=== PATIENT | male | born 1945 | race Caucasian/White ===

== ENCOUNTER 2018-12-21 11:37 | Inpatient (IN) ==
[2018-12-21] MEDS: 0.9 % Sodium Chloride 1,000 ML IVC SCH ×2 (12:26→21:24)
[2018-12-21 12:33] LABS: Bilirubin,Urine Negative (Negative); Blood,Urine Negative (Negative); Clarity,Urine Clear (Clear); Color,Urine Yellow (Yellow); Glucose,Urine (UA) Normal (Normal); Ketones,Urine Negative (Negative); Leukocyte Esterase,Urine Negative (Negative); Nitrite,Urine Negative (Negative); PH,Urine 7.5 pH Units (5.0-8.0); Protein,Urine Negative (Neg-Trace); Specific Gravity,Urine 1.012 (1.010-1.025)
[2018-12-21 12:38] LABS: Hematocrit 20.4 % (37.5-50.1); Hemoglobin 6.8 g/dL (12.9-16.9); Immature Platelets 5.8 % (1.1-6.1); Mean Corpuscular HGB Conc 33.3 g/dL (31.6-35.5); Mean Corpuscular Hemoglobin 31.2 pg (28.0-33.3); Mean Corpuscular Volume 93.6 fL (83.0-100.0); Nucleated Red Blood Cells 1.1 /100 WBC (0); Red Blood Count 2.18 M/mcL (4.19-5.50); Red Cell Distribution Width 14.9 % (11.5-14.5); White Blood Count 4.5 K/mcL (4.3-11.1)
[2018-12-21 12:42] LABS: Platelet Count 19 K/mcL (140-400)
[2018-12-21 12:45] LABS: INR 1.1; Prothrombin Time 12.3 Seconds (9.4-12.1)
[2018-12-21 12:47] LABS: Activated Partial Thrombo Time 30.8 Seconds (26.0-36.0)
[2018-12-21 12:52] LABS: Alanine Aminotransferase 14 Units/L (7-52); Albumin 3.9 g/dL (3.5-5.7); Albumin/Globulin Ratio 1.6 (1.1-2.2); Alkaline Phosphatase 74 Units/L (34-104); Aspartate Amino Transferase 18 Units/L (13-39); BUN/Creatinine Ratio 21 (6-26); Bilirubin,Direct 0.1 mg/dL (0.0-0.2); Bilirubin,Indirect 0.5 mg/dL (0.0-1.2); Bilirubin,Total 0.6 mg/dL (0.3-1.0); Blood Urea Nitrogen 16 mg/dL (8-23); Calcium 9.4 mg/dL (8.6-10.3); Carbon Dioxide 29 mEq/L (23-29); Chloride 99 mEq/L (98-107); Creatine Kinase 52 Units/L (30-223); Globulin 2.4 g/dL (2.4-3.5); Glucose 149 mg/dL (70-105); Magnesium 1.8 mg/dL (1.6-2.6); Osmolality,Calculated 288 (280-300); Phosphorous 3.7 mg/dL (2.7-4.5); Potassium 4.2 mEq/L (3.5-5.1); Sodium 137 mEq/L (136-145); Total Protein 6.3 g/dL (6.4-8.9); Troponin I < 0.03 ng/mL (< 0.04); Uric Acid 5.7 mg/dL (2.3-7.6); eGFR For African Americans > 60 (> 60); eGFR For Non-African Americans > 60 (> 60)
[2018-12-21 13:12] LABS: Lymphocytes # 0.3 K/mcL (0.6-4.6); Monocytes # 0.3 K/mcL (0.0-1.3)
[2018-12-21 13:14] LABS: Platelet Estimate Marked Decrease (Normal)
[2018-12-21 13:16] LABS: Anisocytosis 1+ (Not Present)
[2018-12-21 13:18] LABS: Hypochromasia Present (Not Present)
[2018-12-21] MEDS ORDERED: Isovue-370 500 ML BOTTLE IVP ONE (13:39)
--- NOTE | 2018-12-21 13:43 | Emergency Department Note ---
Disposition Clinical Impression: Small cell lung cancer, Anemia, Thrombocytopenia, Pneumonia, Syncope Disposition: Admitted As Inpatient Condition: Fair [facility] Care Provider[facility] - Forms: ED Satisfaction Letter Time of Disposition: 15:38 General Adult HPI - General Chief complaint: ED Shortness of Breath/Dyspnea Stated complaint: SLIME Time Seen by Provider: 12/21/18 11:44 Source: patient Mode of arrival: ambulatory Limitations: no limitations Nursing Notes Reviewed: Yes Vital Signs Reviewed: Yes - History of Present Illness HPI Narrative: Patient presents emergency room in the care of the family for evaluation of a syncopal event yesterday as well as shortness of breath and generalized weakness. Patient is currently in the care of oncology for small cell lung cancer. They felt that his hemoglobin was low and requested that he come to the emergency room for further evaluation. Patient has denied any fevers or chills or other medical conditions here recently. Onset (ago): day(s) Radiation: non-radiation Pain Severity: mild Pain Scale: 7 Quality: aching Consistency: constant Improves with: nothing Worsens with: movement Associated symptoms: Reports: cough, loss of appetite, malaise, nausea/vomiting - Related Data Home Medications Medication Instructions Recorded Confirmed Atenolol [Tenormin] 50 mg PO DAILY 10/18/18 12/21/18 Atorvastatin [Lipitor] 10 mg PO HS 10/18/18 12/21/18 Theophylline Anhydrous 400 mg PO DAILY 10/18/18 12/21/18 [Theophylline] Cholecalciferol (D-3) [Vitamin D] 1,000 unit PO DAILY 12/05/18 12/21/18 Cyanocobalamin (Vitamin B-12) 1,000 mcg PO DAILY 12/05/18 12/21/18 [Vitamin B12] Ferrous Sulfate 325 mg PO DAILY 12/05/18 12/21/18 Multivitamin [Multivitamins] 1 each PO DAILY 12/05/18 12/21/18 Oxycodone HCl/Acetaminophen 1 each PO Q8H PRN 12/05/18 12/21/18 [Percocet 5-325 mg Tablet] Diflucan 100 mg PO 12/21/18 Levaquin 500 mg PO 12/21/18 PredniSONE 10 mg PO 12/21/18 Previous Rx's Medication Instructions Recorded Lidocaine/Prilocaine [Emla] 1 appl TP DAILY #30 gm 10/18/18 Ondansetron HCl [Zofran] 4 mg PO Q6HR PRN #30 tablet 11/21/18 Allergies Allergy/AdvReac Type Severity Reaction Status Date / Time adhesive tape Allergy Rash Verified 12/05/18 09:45 Erythromycin Base Allergy Rash Verified 12/05/18 09:45 [From Erythrocin] latex Allergy Rash Verified 12/05/18 09:45 All systems ED: reviewed and negative except as stated. Review of Systems: As Per HPI Constitutional: Reports: weakness. Denies: fever, chills ENT ED: Reports: congestion. Denies: hearing loss, dysphagia Cardiovascular: Reports: orthopnea, syncope. Denies: chest pain, palpitations, dyspnea on exertion, edema Respiratory: Reports: cough. Denies: dyspnea, wheezes Gastrointestinal: Reports: nausea. Denies: abdominal pain, vomiting, diarrhea Genitourinary: Denies: urgency, dysuria Musculoskeletal: Denies: back pain, neck pain Integumentary: Denies: rash Neurological: Denies: headache Endocrine: Reports: fatigue Past Medical History - Past Medical History Attestation: Yes The following information was validated with the patient. Source: patient Medical history: Reports: arthritis, asthma, cancer, COPD, hyperlipidemia, hypertension, malignancy, other Psychiatric history: Reports: no psych history - Social History Smoking Status: Former smoker Smokeless Tobacco Status: No Alcohol use: Reports: recent Drug use: Reports: none Physical Exam - General Limitations: no limitations General appearance: alert, in no apparent distress - Head Head exam: atraumatic, normocephalic, normal inspection - Eye Eye exam: Present: normal appearance, PERRL, EOMI, other - ENT ENT exam: normal exam, normal oropharynx, mucous membranes moist - Neck Neck exam: Present: normal inspection, full ROM - Chest Chest inspection: Present: normal inspection, symmetric chest wall rise. Ab sent: tenderness - Respiratory Respiratory exam: Present: accessory muscle use, other. Absent: respiratory distress, wheezes, stridor - Cardiovascular Cardiovascular exam: Present: normal rhythm, tachycardia, normal heart sounds - Abdominal Exam Abdominal exam: Present: soft, Non-Tender, normal bowel sounds. Absent: tenderness, distention, guarding, rebound, rigidity, Dunlap's sign, Rovsing's sign, tenderness at McBurney's Point - Extremities Exam Extremities exam: Present: normal inspection, full ROM, normal capillary refill. Absent: tenderness - Back Exam Back exam: Present: normal inspection - Neurological Exam Neurological exam: Present: alert, oriented X3, CN II-XII intact, normal gait - Skin Skin exam: Present: warm, dry, intact, pallor Course Course Narrative: Patient seen and examined the time of arrival. See history of present illness. 73-year-old male presents emergency room at the request of his oncologist Dr. Tucker. Patient was over there this morning for radiation treatment for non- small cell lung cancer. Cancer is in the right side of his lung base. Patient has had generalized malaise and a syncopal event yesterday. He is also had some blood-streaked mucus on coughing up this at this time. He denies any recent fevers or chills. He has had nausea without any specific vomiting. Denies any other falls trauma or injury. He is not currently not taking any blood thinners. Head is atraumatic. Pupils are equal round reactive. Conjunctiva is pale. Mucous members are moist. No petechial rashes or lesions noted across the skin on initial exam. Lungs are diminished on the right side worse than the left. Heart is regular and tachycardic. Abdomen is soft nontender nondistended with no guarding no rigidity no peritoneal symptoms at this time. Placenta trauma or injury noted. Extremities are otherwise normal on exam. Anterior left-sided chest wall port is accessed at this time with no redness warmth or erythema around it. Patient has no other symptoms or complaints at this point. Sepsis evaluation will be started this time looking for infectious etiology versus anemia is a presenting source to the syncopal event yesterday. Patient has stable blood pressure but was slightly tachycardic. Patient has hemoptysis which is concerning secondary to lung cancer. Clinical suspicion for pulmonary emboli is low considering he is currently in active treatment for lung cancer. Detailed workup will be established with CT imaging of the head chest x-ray EKG CBC chemistry electrolytes lactic acid troponin along with blood typing and screen. Disposition to be determined once full workup and treatment course is completed. Expect the patient will most likely require admission for syncope at the bare minimum. EKG to be reviewed and disposition determined. - Reevaluation(s) Reevaluation #1: Hemoglobin is 6.8. Platelet count is 19. From oncology was contacted and recommended transplant using platelets as well as blood product. CT imaging of the head and CT angiography the chest to be completed this time considering the patient bilateral atelectasis with possible pneumonia. Patient did not have signs of infection initially does not drink any other symptoms but because of th e findings on chest x-ray patient will have blood cultures and antibiotics ordered for what appears to be pneumonia at this time. Definitive management will be established in the inpatient setting. Patient is otherwise stable. Patient will be resuscitated with blood products as opposed to large volume fluid resuscitation at this time. Time: 13:51 Reevaluation #2: Patient was discussed with the hospitalist Dr. Oseguera. Patient is otherwise clinically stable this time. First unit of blood is being transfused. CT of the chest is otherwise unremarkable at this time onset of fibrosis. Antibiotic regimen was discussed. CT the head was negative. Patient is clinically stable this point. No other recommendations or concerns noted at this time. Patient will be monitored here in the emergency department until the admission is completed. Time: 15:37 Vital Signs Temperature 98.0 F 12/21/18 11:38 Pulse Rate 103 12/21/18 11:38 Respiratory Rate 20 12/21/18 11:38 Blood Pressure 127/91 12/21/18 11:38 O2 Sat by Pulse Oximetry 95 12/21/18 11:38 Temperature 98.2 F 12/21/18 15:01 Pulse Rate 99 12/21/18 15:01 Respiratory Rate 16 12/21/18 15:01 Blood Pressure 125/92 12/21/18 15:01 O2 Sat by Pulse Oximetry 98 12/21/18 14:58 Oxygen Delivery Oxygen Delivery Nasal Cannula Medical Decision Making - [facility] Narrative Medical decision making narrative: Pneumonia, anemia, thrombocytopenia, small cell lung cancer - Medical Records Medical records reviewed: Yes I reviewed the patient's medical records. - Lab Data Lab results reviewed: Yes I reviewed the patient's lab results. Result diagrams: 12/21/18 12:14 12/21/18 12:14 Lab Results 12/21/18 12/21/18 12/21/18 Range/Units 12:14 12:14 12:14 WBC 4.5 (4.3-11.1) K/mcL RBC 2.18 L (4.19-5.50) M/mcL Hgb 6.8 L (12.9-16.9) g/dL Hct 20.4 L (37.5-50.1) % MCV 93.6 (83.0-100.0) fL MCH 31.2 (28.0-33.3) pg MCHC 33.3 (31.6-35.5) g/dL RDW 14.9 H (11.5-14.5) % Plt Count 19 L* (140-400) K/mcL MPV 12.0 (9.4-12.4) fL Seg Neutrophils % 72.0 % Band Neutrophils % 16.0 H (0-4) % Lymphocytes % 6.0 % Monocytes % 6.0 % Neutrophils # 4.0 (1.6-8.9) K/mcL Lymphocytes # 0.3 L (0.6-4.6) K/mcL Monocytes # 0.3 (0.0-1.3) K/mcL Nucleated RBCs/100 WBC 1.1 H (0) /100 WBC Platelet Estimate Marked Decrease L (Normal) Immature Plt Fraction 5.8 (1.1-6.1) % Hypochromasia Present A (Not Present) Anisocytosis 1+ A (Not Present) PT 12.3 H (9.4-12.1) Seconds INR 1.1 APTT 30.8 (26.0-36.0) Seconds Sodium 137 (136-145) mEq/L Potassium 4.2 (3.5-5.1) mEq/L Chloride 99 (98-107) mEq/L Carbon Dioxide 29 (23-29) mEq/L BUN 16 (8-23) mg/dL Creatinine 0.78 (0.70-1.30) mg/dL Est GFR ( Amer) > 60 (> 60) Est GFR (Non-Af Amer) > 60 (> 60) BUN/Creatinine Ratio 21 (6-26) Glucose 149 H (70-105) mg/dL Calculated Osmolality 288 (280-300) Lactic Acid (0.5-2.2) mmol/L Uric Acid 5.7 (2.3-7.6) mg/dL Calcium 9.4 (8.6-10.3) mg/dL Phosphorus 3.7 (2.7-4.5) mg/dL Magnesium 1.8 (1.6-2.6) mg/dL Total Bilirubin 0.6 (0.3-1.0) mg/dL Direct Bilirubin 0.1 (0.0-0.2) mg/dL Indirect Bilirubin 0.5 (0.0-1.2) mg/dL AST 18 (13-39) Units/L ALT 14 (7-52) Units/L Alkaline Phosphatase 74 (34-104) Units/L Creatine Kinase 52 (30-223) Units/L Troponin I < 0.03 (< 0.04) ng/mL B-Natriuretic Peptide (Less than 100) pg/mL Serum Total Protein 6.3 L (6.4-8.9) g/dL Albumin 3.9 (3.5-5.7) g/dL Globulin 2.4 (2.4-3.5) g/dL Albumin/Globulin Ratio 1.6 (1.1-2.2) Random Cortisol 9.0 mcg/dl Urine Color (Yellow) Urine Clarity (Clear) Urine pH (5.0-8.0) pH Units Ur Specific [place] (1.010-1.025) Urine Protein (Neg-Trace) mg/dL Urine Glucose (UA) (Normal) mg/dL Urine Ketones (Negative) mg/dL Urine Blood (Negative) Urine Nitrite (Negative) Urine Bilirubin (Negative) Urine Urobilinogen (Normal) mg/dL Ur Leukocyte Esterase (Negative) Ur Culture Indicated? (NO) Blood Type Antibody Screen Crossmatch 12/21/18 12/21/18 12/21/18 Range/Units 12:14 12:14 12:14 WBC (4.3-11.1) K/mcL RBC (4.19-5.50) M/mcL Hgb (12.9-16.9) g/dL Hct (37.5-50.1) % MCV (83.0-100.0) fL MCH (28.0-33.3) pg MCHC (31.6-35.5) g/dL RDW (11.5-14.5) % Plt Count (140-400) K/mcL MPV (9.4-12.4) fL Seg Neutrophils % % Band Neutrophils % (0-4) % Lymphocytes % % Monocytes % % Neutrophils # (1.6-8.9) K/mcL Lymphocytes # (0.6-4.6) K/mcL Monocytes # (0.0-1.3) K/mcL Nucleated RBCs/100 WBC (0) /100 WBC Platelet Estimate (Normal) Immature Plt Fraction (1.1-6.1) % Hypochromasia (Not Present) Anisocytosis (Not Present) PT (9.4-12.1) Seconds INR APTT (26.0-36.0) Seconds Sodium (136-145) mEq/L Potassium (3.5-5.1) mEq/L Chloride (98-107) mEq/L Carbon Dioxide (23-29) mEq/L BUN (8-23) mg/dL Creatinine (0.70-1.30) mg/dL Est GFR ( Amer) (> 60) Est GFR (Non-Af Amer) (> 60) BUN/Creatinine Ratio (6-26) Glucose (70-105) mg/dL Calculated Osmolality (280-300) Lactic Acid 1.3 (0.5-2.2) mmol/L Uric Acid (2.3-7.6) mg/dL Calcium (8.6-10.3) mg/dL Phosphorus (2.7-4.5) mg/dL Magnesium (1.6-2.6) mg/dL Total Bilirubin (0.3-1.0) mg/dL Direct Bilirubin (0.0-0.2) mg/dL Indirect Bilirubin (0.0-1.2) mg/dL AST (13-39) Units/L ALT (7-52) Units/L Alkaline Phosphatase (34-104) Units/L Creatine Kinase (30-223) Units/L Troponin I (< 0.04) ng/mL B-Natriuretic Peptide 124 H (Less than 100) pg/mL Serum Total Protein (6.4-8.9) g/dL Albumin (3.5-5.7) g/dL Globulin (2.4-3.5) g/dL Albumin/Globulin Ratio (1.1-2.2) Random Cortisol mcg/dl Urine Color (Yellow) Urine Clarity (Clear) Urine pH (5.0-8.0) pH Units Ur Specific [place] (1.010-1.025) Urine Protein (Neg-Trace) mg/dL Urine Glucose (UA) (Normal) mg/dL Urine Ketones (Negative) mg/dL Urine Blood (Negative) Urine Nitrite (Negative) Urine Bilirubin (Negative) Urine Urobilinogen (Normal) mg/dL Ur Leukocyte Esterase (Negative) Ur Culture Indicated? (NO) Blood Type O POSITIVE Antibody Screen NEGATIVE Crossmatch See Detail 12/21/18 Range/Units 12:23 WBC (4.3-11.1) K/mcL RBC (4.19-5.50) M/mcL Hgb (12.9-16.9) g/dL Hct (37.5-50.1) % MCV (83.0-100.0) fL MCH (28.0-33.3) pg MCHC (31.6-35.5) g/dL RDW (11.5-14.5) % Plt Count (140-400) K/mcL MPV (9.4-12.4) fL Seg Neutrophils % % Band Neutrophils % (0-4) % Lymphocytes % % Monocytes % % Neutrophils # (1.6-8.9) K/mcL Lymphocytes # (0.6-4.6) K/mcL Monocytes # (0.0-1.3) K/mcL Nucleated RBCs/100 WBC (0) /100 WBC Platelet Estimate (Normal) Immature Plt Fraction (1.1-6.1) % Hypochromasia (Not Present) Anisocytosis (Not Present) PT (9.4-12.1) Seconds INR APTT (26.0-36.0) Seconds Sodium (136-145) mEq/L Potassium (3.5-5.1) mEq/L Chloride (98-107) mEq/L Carbon Dioxide (23-29) mEq/L BUN (8-23) mg/dL Creatinine (0.70-1.30) mg/dL Est GFR ( Amer) (> 60) Est GFR (Non-Af Amer) (> 60) BUN/Creatinine Ratio (6-26) Glucose (70-105) mg/dL Calculated Osmolality (280-300) Lactic Acid (0.5-2.2) mmol/L Uric Acid (2.3-7.6) mg/dL Calcium (8.6-10.3) mg/dL Phosphorus (2.7-4.5) mg/dL Magnesium (1.6-2.6) mg/dL Total Bilirubin (0.3-1.0) mg/dL Direct Bilirubin (0.0-0.2) mg/dL Indirect Bilirubin (0.0-1.2) mg/dL AST (13-39) Units/L ALT (7-52) Units/L Alkaline Phosphatase (34-104) Units/L Creatine Kinase (30-223) Units/L Troponin I (< 0.04) ng/mL B-Natriuretic Peptide (Less than 100) pg/mL Serum Total Protein (6.4-8.9) g/dL Albumin (3.5-5.7) g/dL Globulin (2.4-3.5) g/dL Albumin/Globulin Ratio (1.1-2.2) Random Cortisol mcg/dl Urine Color Yellow (Yellow) Urine Clarity Clear (Clear) Urine pH 7.5 (5.0-8.0) pH Units Ur Specific [place] 1.012 (1.010-1.025) Urine Protein Negative (Neg-Trace) mg/dL Urine Glucose (UA) Normal (Normal) mg/dL Urine Ketones Negative (Negative) mg/dL Urine Blood Negative (Negative) Urine Nitrite Negative (Negative) Urine Bilirubin Negative (Negative) Urine Urobilinogen 2.0 H (Normal) mg/dL Ur Leukocyte Esterase Negative (Negative) Ur Culture Indicated? NO (NO) Blood Type Antibody Screen Crossmatch - Radiology Data Radiology results reviewed: Yes I reviewed the patient's radiology results. - EKG Data EKG #1 EKG attestation: Yes I reviewed and interpreted this EKG. EKG results narrative: EKG shows sinus tachycardia with a heart rate of 117. [place] appears to be normal. [place] interval 136. QRS duration of 73. QTC of 438. No acute signs of ST segment elevation or abnormality. No acute signs of WPW or Brugada syndrome. Comparable EKG to be reviewed when it is resulted. Critical Care Time Critical Care Time: Yes Total Critical Care Time: 60 Attestation: Critical care performed: Time is exclusive of separately billable procedures. Time includes: direct patient care, patient reassessment, coordination of patient care, interpretation of data (laboratory data, radiology data, and respiratory data), review of patient's medical records, medical consultation and documentation of patient care. Procedures included in critical care time: Procedures excluded from critical care time:
[2018-12-21] MEDS ORDERED: Piperacillin/Tazobactam 3.375 GM in 0.9 % Sodium Chloride Mini Bag 100 ML IVPB ONE (14:00)
[2018-12-21] MEDS ORDERED: Vancomycin (wt based) 1,000 MG VIAL IVPB SCH (14:00)
[2018-12-21] MEDS ORDERED: levoFLOXacin 750 MG/150 ML 750 MG/150 ML BAG IVPB ONE (14:00)
[2018-12-21] MEDS ORDERED: 0.9 % Sodium Chloride 250 ML ONE ×3 (14:31→19:50)
--- NOTE | 2018-12-21 19:52 | Internal Med History&Physical ---
Date of Encounter: 12/22/18 Time of Encounter: 19:52 Internal Medicine - H&P: HPI Chief complaint: Syncope Admitted From: Home History of present illness: Mr. Mckeon is a 73 year old male with a previous medical history of small cell lung cancer, COPD, hypertension was being admitted after he had a syncopal episode which is felt to be related to severe anemia. Patient has been transfused 1 unit of blood so far and will be receiving another unit. He also has thrombo-cytopenia and will receive platelets. The syncopal episode had happened yesterday when he was sitting on a chair. No chest pain. No increase in shortness of breath. He was being treated for a possible pneumonia per his oncologist with Levaquin. He was also being treated for oral thrush with everyday 100 mg Diflucan. The patient had a CT a which did not show pulmonary emboli and also there was no evidence of pneumonia. The patient wants to be a DNR CCA. Past Med Surg Social Fam HX - Past Medical History Medical history: arthritis, asthma, cancer, COPD, hyperlipidemia, hypertension, malignancy, other Additional medical history: Small cell lung cancer currently. Prostate cancer previosly Psychiatric history: no psych history - Past Surgical History Additional surgical history: Prostate surgery - Social History Smoking Status: Former smoker Smokeless Tobacco Status: No Alcohol use: recent Drug use: none - Family History Mother Living Status: Age at : 86 Hx Family Cardiac Disorders: Yes Internal Medicine - H&P: Meds Albuterol Neb [AccuNeb] 1.25 mg IH Q6H PRN 12/22/18 [History] Albuterol Sulfate [Proventil Inhaler] 2 puff IH Q4H PRN 12/22/18 [History] Atorvastatin [Lipitor] 20 mg PO HS 12/22/18 [History] Dimethicone [Walt Cleanse & Protect] 1 gm TP SUSA 12/22/18 [History] Docusate [Colace] 200 mg PO DAILY 12/22/18 [History] Fluconazole [Diflucan] 100 mg PO DAILY 12/22/18 [History] Fluocinolone Acetonide Oil [Dermotic] 20 ml TP SUSA 12/22/18 [History] Fluorouracil [Carac] 1 gm TP BID 12/22/18 [History] Fluticasone Propionate Nasal [Flonase] 100 mcg NS DAILY 12/22/18 [History] Ketoconazole 2% CRM [Nizoral Cream] 1 appl TP BID 12/22/18 [History] Lisinopril [Zestril] 40 mg PO DAILY 12/22/18 [History] Loratadine [Allergy Relief] 10 mg PO DAILY 12/22/18 [History] Mometasone Furoate [Asmanex] 220 mcg IH Q12H 12/22/18 [History] Montelukast [Singulair] 10 mg PO HS 12/22/18 [History] Olodaterol HCl [Striverdi Respimat] 2 puff IH DAILY 12/22/18 [History] Ondansetron HCl [Zofran] 4 mg PO Q6H PRN 12/22/18 [History] OxyCODONE/APAP 5/325 [Percocet 5/325 MG] 1 each PO Q8HR PRN 12/22/18 [History] PredniSONE [Danyelle] 5 mg PO DAILY 12/22/18 [History] Stomatitis Mixture 5 ml PO QID 12/22/18 [History] Theophylline Anhydrous [[place]-24] 400 mg PO DAILY 12/22/18 [History] Tiotropium [place] [Spiriva Respimat] 2 puff IH DAILY 12/22/18 [History] levoFLOXacin [Levofloxacin] 500 mg PO DAILY 12/22/18 [History] predniSONE [PredniSONE] See Taper PO TAPER 12/22/18 [History] Allergy/AdvReac Type Severity Reaction Status Date / Time adhesive tape Allergy Rash Verified 12/05/18 09:45 Erythromycin Base Allergy Rash Verified 12/05/18 09:45 [From Erythrocin] latex Allergy Rash Verified 12/05/18 09:45 All Systems PM: A 10-system review of systems was performed and is negative for pertinent findings except as documented above in the HPI. - Constitutional Vitals: Temp Pulse Resp BP Pulse Ox 98.5 F 102 18 138/84 94 12/21/18 18:36 12/21/18 18:36 12/21/18 18:36 12/21/18 18:36 12/21/18 18:36 General appearance: Present: A&O X 3, answers questions appropriately Exam: Pt sitting comfortably, NAD - Head Head exam: Present: atraumatic, normocephalic - Eye Eye exam: Present: normal appearance, conjuntiva pink, sclera anicteric. Absent: nystagmus Pupils: Present: PERRL - Neck Neck exam general surgery: Present: supple, trachea midline. Absent: lymphadenopathy - Respiratory Respiratory exam: Present: wheezes. Absent: accessory muscle use, rales, r honchi Additional comments: Inspiratory wheezing. - Cardiovascular Cardiovascular exam: Present: RRR, +S1, +S2. Absent: diastolic murmur, gallop, rubs, systolic murmur - GI/Abdominal GI/Abdominal exam: Present: normal bowel sounds, soft, no peritoneal signs. Absent: distended, tenderness - Extremities Exam Extremities exam: Present: warm, radial pulses palpable and symmetrical. Absent: calf tenderness, cyanotic, pedal edema - Neurological Exam Neurological exam: Present: CN II-XII intact, oriented X3, no focal deficits. Absent: pronater drift, facial droop, speech deficit - Skin Skin exam: Present: dry, intact Internal Med - H&P Results - Labs CBC & Chem 7: 12/22/18 03:40 12/22/18 03:40 Labs: Short CBC 12/21/18 Range/Units 12:14 WBC 4.5 (4.3-11.1) K/mcL Hgb 6.8 L (12.9-16.9) g/dL Hct 20.4 L (37.5-50.1) % Plt Count 19 L* (140-400) K/mcL Neutrophils # 4.0 (1.6-8.9) K/mcL BMP 12/21/18 12:14 Sodium 137 Potassium 4.2 Chloride 99 Carbon Dioxide 29 BUN 16 Creatinine 0.78 Glucose 149 H Calcium 9.4 Cardiac Enzymes 12/21/18 Range/Units 12:14 Troponin I < 0.03 (< 0.04) ng/mL Liver Function 12/21/18 Range/Units 12:14 Total Bilirubin 0.6 (0.3-1.0) mg/dL Direct Bilirubin 0.1 (0.0-0.2) mg/dL AST 18 (13-39) Units/L ALT 14 (7-52) Units/L Alkaline Phosphatase 74 (34-104) Units/L Albumin 3.9 (3.5-5.7) g/dL Urine 08/08/19 Range/Units 12:23 Urine Color Yellow (Yellow) Urine Clarity Clear (Clear) Urine pH 7.5 (5.0-8.0) pH Units Ur Specific [place] 1.012 (1.010-1.025) Urine Protein Negative (Neg-Trace) mg/dL Urine Glucose (UA) Normal (Normal) mg/dL - Impressions ITS Impressions Chest X-Ray 12/21/18 11:58 IMPRESSION: Bilateral lower lobe predominant airspace opacities may represent multifocal pneumonia. Follow-up to resolution is recommended. Moderate emphysema. D/ / Nidia Cortez MD / Nidia Cortez MD Interpreting Provider: Nidia Cortez MD Head CT 12/21/18 13:15 IMPRESSION: No acute intracranial abnormality. D/ / Devin Xiong MD / Devin Xiong MD Interpreting Provider: Devin Xiong MD Chest CTA 12/21/18 13:40 IMPRESSION: 1. No evidence for acute pulmonary embolism. 2. Moderate centrilobular emphysema. 3. Near complete resolution of right upper lobe perihilar mass now with only some residual nodular soft tissue density tracking along the segmental pulmonary arterial branches. 4. Interval development of posterior segment right upper lobe and superior segment right lower lobe interlobular septal thickening and some underlying ground-glass attenuation may reflect radiation port induced fibrosis and pneumonitis. D/ / Kody Jimenez MD / Kody Jimenez MD Interpreting Provider: Kody Jimenez MD - Assessment and Plan (1) Anemia Current Visit: Yes Status: Acute Assessment and plan: From chronic disease complicated by blood loss from hemoptysis. Transfuse 2 units 2 PRBC. Repeat H/H post transfusion. Qualifiers: Anemia type: other cause Other causes of anemia: antineoplastic chemotherapy Qualified Code(s): D64.81 - Anemia due to antineoplastic chemotherapy; T45.1X5A - Adverse effect of antineoplastic and immunosuppressive drugs, initial encounter (2) Small cell lung cancer Assessment and plan: Pt undergoing chemoradiation per oncology. Tomorrow for rad oncology session. (3) Syncope Status: Acute Assessment and plan: Likely from Anemia. Consider Echo and Carotid US in M. No sx hx. CT head NAD. Qualifiers: Syncope type: unspecified Qualified Code(s): R55 - Syncope and collapse (4) Thrombocytopenia Current Visit: Yes Status: Acute Assessment and plan: Plt transfusion per onc rec. (5) Oral thrush Current Visit: No Status: Acute Assessment and plan: On exam appears resolved but will need to complete 5 days of therapy with diflucan per onc advice. (6) Hemoptysis Current Visit: No Status: Acute Assessment and plan: Likely from a combination of small cell ca and resp infection treated by Onc with Levaquin. CT does not show PNA but acute bronchitis possible. Cont nebs, Levaquin from out pt and humidified O2 as needed. (7) COPD (chronic obstructive pulmonary disease) Current Visit: Yes Status: Chronic Assessment and plan: Cont pt nebs, inhaled steroids and LABA. Qualifiers: COPD type: unspecified COPD Qualified Code(s): J44.9 - Chronic obstructive pulmonary disease, unspecified - Time Spent With Patient Total time spent is greater than 50% in coordination of care (as documented) at patient's floor/unit and/or counseling patient: Greater than 35 minutes - VTE Reasons for not Prescribing Prophylaxis: Medical contraindication
[2018-12-21] MEDS ORDERED: Furosemide 40 MG/4 ML VIAL IVP ONE (20:15)
[2018-12-21] MEDS ORDERED: levoFLOXacin 750 MG TABLET PO SCH (20:30)
[2018-12-21] MEDS: predniSONE 20 MG TABLET PO SCH (21:36)
[2018-12-21] MEDS: *HR* OxyCODONE/APAP 5/325 TABLET PO PRN (21:36)
[2018-12-21 22:29] LABS: % Iron Saturation 87 % (20-55); Iron 235 mcg/dL (65-175); Transferrin 194 mg/dL (203-362)
[2018-12-21 22:47] LABS: Ferritin 478 ng/mL (20-250)
[2018-12-21] MEDS: Ipratropium/Albuterol Neb 3 ML IH SCH (23:34)
--- NOTE | 2018-12-22 03:33 | Electrocardiograph Report ---
Allen GIDEEN Test Date: 2018-12-21 Pat Name: Rommel Mckeon Department: [id number] Room: [facility] Gender: M [employer]: : 1945 Requested By: Kun Leon Order Number: [id number] Reading MD: Cabrera Hicks Measurements Intervals [place] Rate: 117 P: 72 AL: 136 QRS: 68 QRSD: 73 T: 67 QT: 314 QTc: 438 Interpretive Statements Sinus tachycardia Electronically Signed On 12-22-2018 3:31:31 EDT by Cabrera Hicks
[2018-12-22 03:55] LABS: Monocytes % 5.1 %
[2018-12-22 03:57] LABS: Basophils % 0.2 %; Hematocrit 26.5 % (37.5-50.1); Hemoglobin 8.9 g/dL (12.9-16.9); Immature Granulocytes % 5.4 % (0-4); Immature Platelets 3.3 % (1.1-6.1); Lymphocytes # 0.1 K/mcL (0.6-4.6); Lymphocytes % 2.5 %; Mean Corpuscular HGB Conc 33.6 g/dL (31.6-35.5); Mean Corpuscular Hemoglobin 30.8 pg (28.0-33.3); Mean Corpuscular Volume 91.7 fL (83.0-100.0); Monocytes # 0.3 K/mcL (0.0-1.3); Neutrophils # 4.8 K/mcL (1.6-8.9); Nucleated Red Blood Cells 1.1 /100 WBC (0); Red Blood Count 2.89 M/mcL (4.19-5.50); Red Cell Distribution Width 14.3 % (11.5-14.5); Segmented Neutrophils % 86.8 %; White Blood Count 5.5 K/mcL (4.3-11.1)
[2018-12-22 04:06] LABS: Platelet Count 28 K/mcL (140-400)
[2018-12-22 04:13] LABS: BUN/Creatinine Ratio 18 (6-26); Blood Urea Nitrogen 16 mg/dL (8-23); Carbon Dioxide 29 mEq/L (23-29); Chloride 102 mEq/L (98-107); Glucose 144 mg/dL (70-105); Osmolality,Calculated 290 (280-300); Potassium 3.9 mEq/L (3.5-5.1); Sodium 138 mEq/L (136-145); eGFR For African Americans > 60 (> 60); eGFR For Non-African Americans > 60 (> 60)
[2018-12-22] MEDS: Ipratropium/Albuterol Neb 3 ML IH SCH ×5 (04:13→20:06)
[2018-12-22 05:13] LABS: Platelet Estimate Marked Decrease (Normal)
[2018-12-22 05:14] LABS: Anisocytosis 1+ (Not Present); Polychromasia 1+ (Not Present)
[2018-12-22] MEDS ORDERED: levoFLOXacin 750 MG TABLET PO SCH (09:00)
[2018-12-22] MEDS: predniSONE 20 MG TABLET PO SCH (09:15)
[2018-12-22] MEDS: Cyanocobalamin (B-12) 1,000 MCG TABLET PO SCH (09:15)
[2018-12-22] MEDS: Fluconazole 100 MG TABLET PO SCH (09:16)
[2018-12-22] MEDS: Cholecalciferol (D-3) 1,000 UNIT (25MCG) TABLET PO SCH (09:16)
[2018-12-22] MEDS: Multivitamin Liquid 15 ML UDC PO SCH (09:17)
[2018-12-22] MEDS: levoFLOXacin 500 MG TABLET PO SCH (09:23)
--- NOTE | 2018-12-22 10:35 | Internal Med Progress Note ---
Hospitalist Progress Note - Encounter Date of Encounter: 12/22/18 Time of Encounter: 09:00 - Exam Vitals: Temp Pulse Resp BP Pulse Ox 98.1 F 101 16 135/71 94 12/22/18 07:08 12/22/18 07:08 12/22/18 07:36 12/22/18 07:08 12/22/18 07:36 - Time Spent with Patient Total time spent is greater than 50% in coordination of care (as documented) at patient's floor/unit and/or counseling patient: Internal Medicine: Result - Labs CBC & Chem 7: 12/22/18 03:40 12/22/18 03:40 Labs: Short CBC 12/21/18 12/22/18 Range/Units 12:14 03:40 WBC 4.5 5.5 (4.3-11.1) K/mcL Hgb 6.8 L 8.9 L D (12.9-16.9) g/dL Hct 20.4 L 26.5 L (37.5-50.1) % Plt Count 19 L* 28 L* (140-400) K/mcL Neutrophils # 4.0 4.8 (1.6-8.9) K/mcL BMP 12/21/18 12/22/18 12:14 03:40 Sodium 137 138 Potassium 4.2 3.9 Chloride 99 102 Carbon Dioxide 29 29 BUN 16 16 Creatinine 0.78 0.87 Glucose 149 H 144 H Calcium 9.4 9.0 Cardiac Enzymes 12/21/18 Range/Units 12:14 Troponin I < 0.03 (< 0.04) ng/mL Liver Function 12/21/18 Range/Units 12:14 Total Bilirubin 0.6 (0.3-1.0) mg/dL Direct Bilirubin 0.1 (0.0-0.2) mg/dL AST 18 (13-39) Units/L ALT 14 (7-52) Units/L Alkaline Phosphatase 74 (34-104) Units/L Albumin 3.9 (3.5-5.7) g/dL Urine 12/21/18 Range/Units 12:23 Urine Color Yellow (Yellow) Urine Clarity Clear (Clear) Urine pH 7.5 (5.0-8.0) pH Units Ur Specific [place] 1.012 (1.010-1.025) Urine Protein Negative (Neg-Trace) mg/dL Urine Glucose (UA) Normal (Normal) mg/dL - ABG Interpretation ABG results: PT/INR, D-dimer PT 12.3 Seconds (9.4-12.1) H 12/21/18 12:14 - Impressions Impressions Chest X-Ray 12/21/18 11:58 IMPRESSION: Bilateral lower lobe predominant airspace opacities may represent multifocal pneumonia. Follow-up to resolution is recommended. Moderate emphysema. D/ / Nidia Cortez MD / Nidia Cortez MD Interpreting Provider: Nidia Cortez MD Head CT 12/21/18 13:15 IMPRESSION: No acute intracranial abnormality. D/ / Devin Xiong MD / Devin Xiong MD Interpreting Provider: Devin Xiong MD Chest CTA 12/21/18 13:40 IMPRESSION: 1. No evidence for acute pulmonary embolism. 2. Moderate centrilobular emphysema. 3. Near complete resolution of right upper lobe perihilar mass now with only some residual nodular soft tissue density tracking along the segmental pulmonary arterial branches. 4. Interval development of posterior segment right upper lobe and superior segment right lower lobe interlobular septal thickening and some underlying ground-glass attenuation may reflect radiation port induced fibrosis and pneumonitis. D/ / Kody Jimenez MD / Kody Jimenez MD Interpreting Provider: Kody Jimenez MD - VTE Reasons for not Prescribing Prophylaxis: Medical contraindication Consult Discharge Plan - Plan [facility]errals: [facility] [Primary Care Provider] -
[2018-12-22] MEDS: Metoprolol XL (24 HR) Succ 25 MG TAB.ER.24H PO SCH (10:53)
[2018-12-22] MEDS ORDERED: (Olodaterol Hcl [Striverdi Respimat] 2 PUFF) IH SCH ×2 (14:15→15:00)
--- NOTE | 2018-12-22 15:48 | Oncology Inp Consult Note ---
<Morgan Stein - Last Filed: 12/22/18 17:51> Date of Encounter: 12/22/18 - Data of Consult Requesting Physician: Joyce Fernando Primary Care Provider: [facility] Medications and Allergies Albuterol Neb [AccuNeb] 1.25 mg IH Q6H PRN 12/22/18 [History] Albuterol Sulfate [Proventil Inhaler] 2 puff IH Q4H PRN 12/22/18 [History] Atorvastatin [Lipitor] 20 mg PO HS 12/22/18 [History] Dimethicone [Walt Cleanse & Protect] 1 gm TP SUSA 12/22/18 [History] Docusate [Colace] 200 mg PO DAILY 12/22/18 [History] Fluconazole [Diflucan] 100 mg PO DAILY 12/22/18 [History] Fluocinolone Acetonide Oil [Dermotic] 20 ml TP SUSA 12/22/18 [History] Fluorouracil [Carac] 1 gm TP BID 12/22/18 [History] Fluticasone Propionate Nasal [Flonase] 100 mcg NS DAILY 12/22/18 [History] Ketoconazole 2% CRM [Nizoral Cream] 1 appl TP BID 12/22/18 [History] Lisinopril [Zestril] 40 mg PO DAILY 12/22/18 [History] Loratadine [Allergy Relief] 10 mg PO DAILY 12/22/18 [History] Mometasone Furoate [Asmanex] 220 mcg IH Q12H 12/22/18 [History] Montelukast [Singulair] 10 mg PO HS 12/22/18 [History] Olodaterol HCl [Striverdi Respimat] 2 puff IH DAILY 12/22/18 [History] Ondansetron HCl [Zofran] 4 mg PO Q6H PRN 12/22/18 [History] OxyCODONE/APAP 5/325 [Percocet 5/325 MG] 1 each PO Q8HR PRN 12/22/18 [History] PredniSONE [Danyelle] 5 mg PO DAILY 12/22/18 [History] Stomatitis Mixture 5 ml PO QID 12/22/18 [History] Theophylline Anhydrous [[place]-24] 400 mg PO DAILY 12/22/18 [History] Tiotropium [place] [Spiriva Respimat] 2 puff IH DAILY 12/22/18 [History] levoFLOXacin [Levofloxacin] 500 mg PO DAILY 12/22/18 [History] predniSONE [PredniSONE] See Taper PO TAPER 12/22/18 [History] Allergy/AdvReac Type Severity Reaction Status Date / Time adhesive tape Allergy Rash Verified 12/05/18 09:45 Erythromycin Base Allergy Rash Verified 12/05/18 09:45 [From Erythrocin] latex Allergy Rash Verified 12/05/18 09:45 Consult Discharge Plan - Plan Referrals: [facility] [Primary Care Provider] - Inpatient Charges Provider: Dr. Tawanna tSein Consult - Inpatient: [id number] - Attending Attestation I examined this patient and my medical decision-making was reviewed with the Advanced Practice Nurse. I agree with the documented findings, disposition and treatment plan as described except to the extent set forth below. -CTA of the chest shows near complete resolution of right upper lobe perihilar mass now with only some residual nodular soft tissue density tracking along the segmental pulmonary arterial branches. -Please follow transfusion parameters provided -Will transfuse 1 unit of platelets today <Matthew Mahmood Jr - Last Filed: 12/22/18 18:28> Date of Encounter: 12/22/18 Time of Encounter: 15:43 Assessment and Plan (1) Small cell lung cancer Status: Acute Assessment and plan: This is a 73 year old male with the following problems, Followed by Dr Morgan Stein at [facility]: 1. Limited Stage, Small cell carcinoma of the lung 2. Prostate cancer s/p cryotherapy in 2011. Now receiving ADT through the [place]. PSA 0.05 on 10/18/18. 3. 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 4. COPD, wears 2-3 liters of O2. Previously on Stem cell therapy for his COPD but this was d/c'ed due his cancer diagnosis. 5. SHONA 6. Asthma 7. HTN 8. CAD 9. Anemia Limited Stage/ Stage IIIA Small Cell Carcinoma of the Lung Treatment intent: palliation C1D1 Carboplatin/Etoposide 10/19/18, 10/718, 10/23/18 C2D1 Carboplatin/Etoposide 11/14/18, 11/15/18, 11/17/18 C3D1 Carboplatin/Etoposie 12/05/18, 12/06/18, 12/07/18 He began radiation treatments on 11/13/18. He is to receive 60 cGy in 30 fractions. He was taken to [facility] today for radiation. Final radiation treatment is 12/25/18. Sent by Dr Tucker in RAD ONC yesterday due to hemoptysis and platelet count of 19 and Hgb 6.8. After 2 units PRBCs at 8.9 and platelets at 28 after 1 pck platelets. Recommendations: 1. Finish final radiation treatment on 01/25/19 at [facility] 2. Transfuse 1 pack platelets if PLT< 10,000, or, PLT < 50,000 if fever or active bleeding or elective procedure 3. Next chemo treatment scheduled for 12/26/[address] Stein. 4. Stabilize medically, we will follow. Dr Stein assessed patient with me today. (2) Anemia Status: Acute Qualifiers: Anemia type: other cause Other causes of anemia: antineoplastic chemotherapy Qualified Code(s): D64.81 - Anemia due to antineoplastic chemotherapy; T45.1X5A - Adverse effect of antineoplastic and immunosuppressive drugs, initial encounter (3) Thrombocytopenia Status: Acute (4) Hemoptysis Status: Acute - Data of Consult Patient: known to practice within the last 3 years Consult date: 12/22/18 Requesting Physician: Joyce Fernando Primary Care Provider: PCP [facility] - Consult Narrative Reason for consult: anemia/low platelets with lung cancer History of present illness: 1. Limited stage, Small cell carcinoma of the lung 2. Prostate cancer s/p cryotherapy in 2011. [facility] 3. 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 4. COPD, wears 2-3 liters of O2. Previously on Stem cell therapy for his COPD but this was d/c'ed due his cancer diagnosis. 5. SHONA 6. Asthma 7. HTN 8. CAD 9. Anemia Past Med Surg Social Fam HX - Past Medical History Medical history: arthritis, asthma, cancer, COPD, hyperlipidemia, hypertension, malignancy, other Additional medical history: Small cell lung cancer currently. Prostate cancer previosly Psychiatric history: no psych history - Past Surgical History Additional surgical history: Prostate surgery - Social History Smoking Status: Former smoker Smokeless Tobacco Status: No Alcohol use: recent Drug use: none - Family History Mother Living Status: Age at : 86 Hx Family Cardiac Disorders: Yes Constitutional: Present: fatigue Respiratory: Present: dyspnea, hemoptysis Oncology - Exam - Constitutional General appearance: no acute distress - Head Head exam: Present: normal inspection, normocephalic - Eye Eye exam: Present: PERRL - ENT ENT exam: Present: mucous membranes moist - Neck Neck exam: Present: full ROM - Respiratory Respiratory exam: Present: decreased breath sounds - Cardiovascular Cardiovascular exam: Present: RRR - GI/Abdominal GI/Abdominal exam: Present: soft - Extremities Exam Extremities exam: Present: full ROM - Neurological Exam Neurological exam: Present: alert, no focal deficits - Psychiatric Psychiatric exam: Present: normal mood - Skin Skin exam: Present: dry, intact Oncology Inpatient Results Labs: Laboratory Last Values WBC 5.5 K/mcL (4.3-11.1) 12/22/18 03:40 RBC 2.89 M/mcL (4.19-5.50) L 12/22/18 03:40 Hgb 8.9 g/dL (12.9-16.9) L D 12/22/18 03:40 Hct 26.5 % (37.5-50.1) L 12/22/18 03:40 MCV 91.7 fL (83.0-100.0) 12/22/18 03:40 MCH 30.8 pg (28.0-33.3) 12/22/18 03:40 MCHC 33.6 g/dL (31.6-35.5) 12/22/18 03:40 RDW 14.3 % (11.5-14.5) 12/22/18 03:40 Plt Count 28 K/mcL (140-400) L* 12/22/18 03:40 MPV 10.0 fL (9.4-12.4) 12/22/18 03:40 Immature Gran % 5.4 % (0-4) H 12/22/18 03:40 Seg Neutrophils % 86.8 % 12/22/18 03:40 Band Neutrophils % 16.0 % (0-4) H 12/21/18 12:14 Lymphocytes % 2.5 % 12/22/18 03:40 Monocytes % 5.1 % 12/22/18 03:40 Eosinophils % 0.0 % 12/22/18 03:40 Basophils % 0.2 % 12/22/18 03:40 Neutrophils # 4.8 K/mcL (1.6-8.9) 12/22/18 03:40 Lymphocytes # 0.1 K/mcL (0.6-4.6) L 12/22/18 03:40 Monocytes # 0.3 K/mcL (0.0-1.3) 12/22/18 03:40 Eosinophils # 0.0 K/mcL (0.0-0.6) 12/22/18 03:40 Basophils # 0.0 K/mcL (0.0-0.2) 12/22/18 03:40 Nucleated RBCs/100 WBC 1.1 /100 WBC (0) H 12/22/18 03:40 Platelet Estimate Marked Decrease (Normal) L 12/22/18 03:40 Immature Plt Fraction 3.3 % (1.1-6.1) 12/22/18 03:40 Polychromasia 1+ (Not Present) A 12/22/18 03:40 Hypochromasia Present (Not Present) A 12/21/18 12:14 Anisocytosis 1+ (Not Present) A 12/22/18 03:40 PT 12.3 Seconds (9.4-12.1) H 12/21/18 12:14 INR 1.1 12/21/18 12:14 APTT 30.8 Seconds (26.0-36.0) 12/21/18 12:14 Sodium 138 mEq/L (136-145) 12/22/18 03:40 Potassium 3.9 mEq/L (3.5-5.1) 12/22/18 03:40 Chloride 102 mEq/L (98-107) 12/22/18 03:40 Carbon Dioxide 29 mEq/L (23-29) 12/22/18 03:40 BUN 16 mg/dL (8-23) 12/22/18 03:40 Creatinine 0.87 mg/dL (0.70-1.30) 12/22/18 03:40 Est GFR ( Amer) > 60 (> 60) 12/22/18 03:40 Est GFR (Non-Af Amer) > 60 (> 60) 12/22/18 03:40 BUN/Creatinine Ratio 18 (6-26) 12/22/18 03:40 Glucose 144 mg/dL (70-105) H 12/22/18 03:40 Calculated Osmolality 290 (280-300) 12/22/18 03:40 Lactic Acid 1.7 mmol/L (0.5-2.2) 12/21/18 18:49 Uric Acid 5.7 mg/dL (2.3-7.6) 12/21/18 12:14 Calcium 9.0 mg/dL (8.6-10.3) 12/22/18 03:40 Phosphorus 3.7 mg/dL (2.7-4.5) 12/21/18 12:14 Magnesium 1.8 mg/dL (1.6-2.6) 12/21/18 12:14 Iron 235 mcg/dL (65-175) H 12/21/18 12:14 % Saturation 87 % (20-55) H 12/21/18 12:14 Transferrin 194 mg/dL (203-362) L 12/21/18 12:14 Ferritin 478 ng/mL (20-250) H 12/21/18 12:14 Total Bilirubin 0.6 mg/dL (0.3-1.0) 12/21/18 12:14 Direct Bilirubin 0.1 mg/dL (0.0-0.2) 12/21/18 12:14 Indirect Bilirubin 0.5 mg/dL (0.0-1.2) 12/21/18 12:14 AST 18 Units/L (13-39) 12/21/18 12:14 ALT 14 Units/L (7-52) 12/21/18 12:14 Alkaline Phosphatase 74 Units/L (34-104) 12/21/18 12:14 Creatine Kinase 52 Units/L (30-223) 12/21/18 12:14 Troponin I < 0.03 ng/mL (< 0.04) 12/21/18 12:14 B-Natriuretic Peptide 124 pg/mL (Less than 100) H 12/21/18 12:14 Serum Total Protein 6.3 g/dL (6.4-8.9) L 12/21/18 12:14 Albumin 3.9 g/dL (3.5-5.7) 12/21/18 12:14 Globulin 2.4 g/dL (2.4-3.5) 12/21/18 12:14 Albumin/Globulin Ratio 1.6 (1.1-2.2) 12/21/18 12:14 Random Cortisol 9.0 mcg/dl 12/21/18 12:14 Urine Color Yellow (Yellow) 12/21/18 12:23 Urine Clarity Clear (Clear) 12/21/18 12:23 Urine pH 7.5 pH Units (5.0-8.0) 12/21/18 12:23 Ur Specific [place] 1.012 (1.010-1.025) 12/21/18 12:23 Urine Protein Negative mg/dL (Neg-Trace) 12/21/18 12:23 Urine Glucose (UA) Normal mg/dL (Normal) 12/21/18 12:23 Urine Ketones Negative mg/dL (Negative) 12/21/18 12:23 Urine Blood Negative (Negative) 12/21/18 12:23 Urine Nitrite Negative (Negative) 12/21/18 12:23 Urine Bilirubin Negative (Negative) 12/21/18 12:23 Urine Urobilinogen 2.0 mg/dL (Normal) H 12/21/18 12:23 Ur Leukocyte Esterase Negative (Negative) 12/21/18 12:23 Ur Culture Indicated? NO (NO) 12/21/18 12:23 Nasal Screen MRSA (PCR) NOT DETECTED (Not Detect) 12/22/18 03:40 Blood Type O POSITIVE 12/21/18 12:14 Antibody Screen NEGATIVE 12/21/18 12:14 Crossmatch See Detail 12/21/18 12:14
[2018-12-22] MEDS: Patient Taking Own Medication 1 EACH IH SCH (18:01)
[2018-12-22] MEDS ORDERED: Perflutren Lipid Microsphere 1.3 ML in 0.9 % Sodium Chloride 8.7 ML IVP ONE (18:25)
[2018-12-22] MEDS: *HR* OxyCODONE/APAP 5/325 TABLET PO PRN (20:57)
--- NOTE | 2018-12-22 22:48 | Internal Med Progress Note ---
Hospitalist Progress Note - Encounter Date of Encounter: 12/22/18 Time of Encounter: 09:00 - Subjective Interval History: Pt seen and examined today. He is feeling better. Nurse noticed sinus tachycardia around 108/m at rest and when pt moves such going to bathroom it may worsen to > 125/m. PT has dypnea.. He used to be on atenolol and stopped it on his own. thinks it dropped his BP too much. Will start low dose metoprolol to prevent ST from getting worse or degenerating into Afib. - Exam Vitals: Temp Pulse Resp BP Pulse Ox 98.4 F 98 16 155/85 93 12/22/18 19:54 12/22/18 19:54 12/22/18 20:00 12/22/18 19:54 12/22/18 20:09 Exam: Pt sitting comfortably, NAD - Head Head exam: Present: atraumatic, normocephalic - Eye Eye exam: Present: normal appearance, conjuntiva pink, sclera anicteric. Absent: nystagmus Pupils: Present: PERRL - Neck Neck exam general surgery: Present: supple, trachea midline. Absent: l ymphadenopathy - Respiratory Respiratory exam: Present: wheezes. Absent: accessory muscle use, rales, rhonchi Additional comments: Inspiratory wheezing. - Cardiovascular Cardiovascular exam: Present: RRR, +S1, +S2. Absent: diastolic murmur, gallop, rubs, systolic murmur - GI/Abdominal GI/Abdominal exam: Present: normal bowel sounds, soft, no peritoneal signs. Absent: distended, tenderness - Extremities Exam Extremities exam: Present: warm, radial pulses palpable and symmetrical. Absent: calf tenderness, cyanotic, pedal edema - Neurological Exam Neurological exam: Present: CN II-XII intact, oriented X3, no focal deficits. Absent: pronater drift, facial droop, speech deficit - Skin Skin exam: Present: dry, intact - Assessment and Plan (1) Anemia Current Visit: Yes Status: Acute Assessment and Plan: From chronic disease complicated by blood loss from hemoptysis. Transfused 2 units 2 PRBC. Repeat H/H post transfusion. Improved to 8.9. Monitor (2) Small cell lung cancer Assessment and Plan: Pt undergoing chemoradiation per oncology. Today for rad oncology session. (3) Syncope Status: Acute Assessment and Plan: Likely from Anemia but will check Echo and Carotid US today to rule out other causes. No sz hx. CT head NAD. (4) Thrombocytopenia Current Visit: Yes Status: Acute Assessment and Plan: Plt transfusion per onc rec. (5) Oral thrush Current Visit: No Status: Acute Assessment and Plan: On exam appears resolved but will need to complete 5 days of therapy with diflucan per onc advice. (6) Hemoptysis Current Visit: No Status: Acute Assessment and Plan: Likely from a combination of small cell ca and resp infection treated by Onc with Levaquin. CT does not show PNA but acute bronchitis possible. Cont nebs, L evaquin from out pt and humidified O2 as needed. (7) COPD (chronic obstructive pulmonary disease) Current Visit: Yes Status: Chronic Assessment and Plan: Cont pt nebs, inhaled steroids and LABA. - Time Spent with Patient Total time spent is greater than 50% in coordination of care (as documented) at patient's floor/unit and/or counseling patient: Internal Medicine: Result - Labs CBC & Chem 7: 12/22/18 03:40 12/22/18 03:40 Labs: Short CBC 12/22/18 Range/Units 03:40 WBC 5.5 (4.3-11.1) K/mcL Hgb 8.9 L D (12.9-16.9) g/dL Hct 26.5 L (37.5-50.1) % Plt Count 28 L* (140-400) K/mcL Neutrophils # 4.8 (1.6-8.9) K/mcL BMP 12/22/18 03:40 Sodium 138 Potassium 3.9 Chloride 102 Carbon Dioxide 29 BUN 16 Creatinine 0.87 Glucose 144 H Calcium 9.0 - ABG Interpretation ABG results: PT/INR, D-dimer PT 12.3 Seconds (9.4-12.1) H 12/21/18 12:14 - VTE Reasons for not Prescribing Prophylaxis: Medical contraindication Consult Discharge Plan - Plan [facility]errals: [facility] [Primary Care Provider] - (1) Anemia Qualifiers: Anemia type: other cause Other causes of anemia: antineoplastic chemotherapy Qualified Code(s): D64.81 - Anemia due to antineoplastic chemotherapy; T45.1X5A - Adverse effect of antineoplastic and immunosuppressive drugs, initial encounter (3) Syncope Qualifiers: Syncope type: unspecified Qualified Code(s): R55 - Syncope and collapse (7) COPD (chronic obstructive pulmonary disease) Qualifiers: COPD type: unspecified COPD Qualified Code(s): J44.9 - Chronic obstructive pulmonary disease, unspecified
[2018-12-22] MEDS ORDERED: 0.9 % Sodium Chloride 250 ML ONE (23:48)
[2018-12-23] MEDS: Ipratropium/Albuterol Neb 3 ML IH SCH ×4 (00:26→10:56)
[2018-12-23 05:35] LABS: Hematocrit 25.3 % (37.5-50.1)
[2018-12-23 05:37] LABS: Hemoglobin 8.2 g/dL (12.9-16.9); Immature Platelets 2.3 % (1.1-6.1); Mean Corpuscular HGB Conc 32.4 g/dL (31.6-35.5); Mean Corpuscular Hemoglobin 30.3 pg (28.0-33.3); Mean Corpuscular Volume 93.4 fL (83.0-100.0); Mean Platelet Volume 9.7 fL (9.4-12.4); Nucleated Red Blood Cells 1.9 /100 WBC (0); Red Blood Count 2.71 M/mcL (4.19-5.50); Red Cell Distribution Width 14.9 % (11.5-14.5); White Blood Count 4.2 K/mcL (4.3-11.1)
[2018-12-23 05:40] LABS: Platelet Count 43 K/mcL (140-400)
[2018-12-23 05:51] LABS: BUN/Creatinine Ratio 22 (6-26); Blood Urea Nitrogen 19 mg/dL (8-23); Calcium 9.2 mg/dL (8.6-10.3); Carbon Dioxide 30 mEq/L (23-29); Chloride 101 mEq/L (98-107); Glucose 108 mg/dL (70-105); Osmolality,Calculated 293 (280-300); Potassium 3.2 mEq/L (3.5-5.1); Sodium 140 mEq/L (136-145); eGFR For African Americans > 60 (> 60); eGFR For Non-African Americans > 60 (> 60)
[2018-12-23 05:56] LABS: Lymphocytes # 0.4 K/mcL (0.6-4.6); Monocytes # 0.3 K/mcL (0.0-1.3); Neutrophils # 3.5 K/mcL (1.6-8.9); Platelet Estimate Decreased (Normal); Polychromasia 1+ (Not Present)
[2018-12-23] MEDS: predniSONE 20 MG TABLET PO SCH (08:04)
[2018-12-23] MEDS: Cholecalciferol (D-3) 1,000 UNIT (25MCG) TABLET PO SCH (08:04)
[2018-12-23] MEDS: Cyanocobalamin (B-12) 1,000 MCG TABLET PO SCH (08:04)
[2018-12-23] MEDS: Multivitamin Liquid 15 ML UDC PO SCH (08:04)
[2018-12-23] MEDS: Fluconazole 100 MG TABLET PO SCH (08:04)
[2018-12-23] MEDS: levoFLOXacin 500 MG TABLET PO SCH (08:04)
[2018-12-23] MEDS: Metoprolol XL (24 HR) Succ 25 MG TAB.ER.24H PO SCH (08:04)
[2018-12-23] MEDS: Patient Taking Own Medication 1 EACH IH SCH (08:05)
[2018-12-23] MEDS: *HR* OxyCODONE/APAP 5/325 TABLET PO PRN (08:44)
[2018-12-23 11:08] VITALS: BP 147/87
--- NOTE | 2018-12-23 12:26 | Discharge Summary ---
- NOTES TO OUTPATIENT PROVIDER Notes to Outpatient Provider: Normocytic Anemia with labs orderred for follow up results and recheck. Orders not resulted at time of discharge: Pending orders 12/21/18 11:58 Occult Blood,Stool [BF] Stat 12/21/18 12:14 Culture,Blood [BC] Stat Date of Encounter: 12/23/18 Time of Encounter: 11:22 - Discharge Diagnosis (1) Small cell lung cancer (2) Anemia Status: Acute Qualifiers: Anemia type: other cause Other causes of anemia: antineoplastic chemotherapy Qualified Code(s): D64.81 - Anemia due to antineoplastic chemotherapy; T45.1X5A - Adverse effect of antineoplastic and immunosuppressive drugs, initial encounter (3) Thrombocytopenia Status: Acute (4) Syncope Status: Acute Qualifiers: Syncope type: unspecified Qualified Code(s): R55 - Syncope and collapse (5) Oral thrush Status: Acute (6) Hemoptysis Status: Acute (7) COPD (chronic obstructive pulmonary disease) Status: Chronic Qualifiers: COPD type: unspecified COPD Qualified Code(s): J44.9 - Chronic obstructive pulmonary disease, unspecified Hospital course: Mr. Mckeon is a 73 year old male - Time Spent with Patient Total time spent providing and/or coordinating discharge services: - Discharge Medications Prescriptions: No Action Fluconazole [Diflucan] 100 mg PO DAILY levoFLOXacin [Levofloxacin] 500 mg PO DAILY predniSONE [PredniSONE] See Taper PO TAPER Tiotropium [place] [Spiriva Respimat] 2 puff IH DAILY Theophylline Anhydrous [[place]-24] 400 mg PO DAILY OxyCODONE/APAP 5/325 [Percocet 5/325 MG] 1 each PO Q8HR PRN PRN Reason: Pain Ondansetron HCl [Zofran] 4 mg PO Q6H PRN PRN Reason: Nausea And Vomiting Olodaterol HCl [Striverdi Respimat] 2 puff IH DAILY Montelukast [Singulair] 10 mg PO HS Mometasone Furoate [Asmanex] 220 mcg IH Q12H Loratadine [Allergy Relief] 10 mg PO DAILY Lisinopril [Zestril] 40 mg PO DAILY Ketoconazole 2% CRM [Nizoral Cream] 1 appl TP BID Fluticasone Propionate Nasal [Flonase] 100 mcg NS DAILY Fluorouracil [Carac] 1 gm TP BID Fluocinolone Acetonide Oil [Dermotic] 20 ml TP SUSA Docusate [Colace] 200 mg PO DAILY Dimethicone [Walt Cleanse & Protect] 1 gm TP SUSA Stomatitis Mixture 5 ml PO QID Atorvastatin [Lipitor] 20 mg PO HS Albuterol Neb [AccuNeb] 1.25 mg IH Q6H PRN PRN Reason: Shortness Of Breath/Wheezing Albuterol Sulfate [Proventil Inhaler] 2 puff IH Q4H PRN PRN Reason: Shortness Of Breath PredniSONE [Danyelle] 5 mg PO DAILY Home Medications: Albuterol Neb [AccuNeb] 1.25 mg IH Q6H PRN 12/22/18 [History] Albuterol Sulfate [Proventil Inhaler] 2 puff IH Q4H PRN 12/22/18 [History] Atorvastatin [Lipitor] 20 mg PO HS 12/22/18 [History] Dimethicone [Walt Cleanse & Protect] 1 gm TP SUSA 12/22/18 [History] Docusate [Colace] 200 mg PO DAILY 12/22/18 [History] Fluconazole [Diflucan] 100 mg PO DAILY 12/22/18 [History] Fluocinolone Acetonide Oil [Dermotic] 20 ml TP SUSA 12/22/18 [History] Fluorouracil [Carac] 1 gm TP BID 12/22/18 [History] Fluticasone Propionate Nasal [Flonase] 100 mcg NS DAILY 12/22/18 [History] Ketoconazole 2% CRM [Nizoral Cream] 1 appl TP BID 12/22/18 [History] Lisinopril [Zestril] 40 mg PO DAILY 12/22/18 [History] Loratadine [Allergy Relief] 10 mg PO DAILY 12/22/18 [History] Mometasone Furoate [Asmanex] 220 mcg IH Q12H 12/22/18 [History] Montelukast [Singulair] 10 mg PO HS 12/22/18 [History] Olodaterol HCl [Striverdi Respimat] 2 puff IH DAILY 12/22/18 [History] Ondansetron HCl [Zofran] 4 mg PO Q6H PRN 12/22/18 [History] OxyCODONE/APAP 5/325 [Percocet 5/325 MG] 1 each PO Q8HR PRN 12/22/18 [History] PredniSONE [Danyelle] 5 mg PO DAILY 12/22/18 [History] Stomatitis Mixture 5 ml PO QID 12/22/18 [History] Theophylline Anhydrous [[place]-24] 400 mg PO DAILY 12/22/18 [History] Tiotropium [place] [Spiriva Respimat] 2 puff IH DAILY 12/22/18 [History] levoFLOXacin [Levofloxacin] 500 mg PO DAILY 12/22/18 [History] predniSONE [PredniSONE] See Taper PO TAPER 12/22/18 [History] Allergies/Adverse Reactions: Allergy/AdvReac Type Severity Reaction Status Date / Time adhesive tape Allergy Rash Verified 12/05/18 09:45 Erythromycin Base Allergy Rash Verified 12/05/18 09:45 [From Erythrocin] latex Allergy Rash Verified 12/05/18 09:45 Date of admission: 12/22/18 12:45 [facility] care physician: [facility] Consults: 12/21/18 13:15 Consult to Oncology [CONS] Stat Consulting Provider: [facility] Reason for Consult: cancer Call Completed: Yes - Constitutional Vitals: Temp Pulse Resp BP Pulse Ox 98.3 F 95 16 147/87 95 12/23/18 06:49 12/23/18 06:49 12/23/18 10:58 12/23/18 11:07 12/23/18 10:58 General appearance: Present: A&O X 3, answers questions appropriately - Patient Status Condition: Fair - Discharge Instructions Instructions: Syncope (DC), Hypotension (DC) Follow Up With: [facility] [Primary Care Provider] - - VTE Reasons for not Prescribing Prophylaxis: Medical contraindication
--- NOTE | 2018-12-23 12:28 | Discharge Summary ---
- NOTES TO OUTPATIENT PROVIDER Notes to Outpatient Provider: Follow up with PCP(lab results and recheck cbc) and Oncology (appointment on Tuesday with lab work) and pulmonary. Orders not resulted at time of discharge: Pending orders 12/21/18 11:58 Occult Blood,Stool [BF] Stat 12/21/18 12:14 Culture,Blood [BC] Stat Date of Encounter: 12/23/18 Time of Encounter: 12:52 - Discharge Diagnosis (1) Syncope Priority: Primary Status: Acute Qualifiers: Syncope type: unspecified Qualified Code(s): R55 - Syncope and collapse (2) Anemia Priority: Secondary Status: Acute Qualifiers: Anemia type: other cause Other causes of anemia: antineoplastic chemotherapy Qualified Code(s): D64.81 - Anemia due to antineoplastic chemotherapy; T45.1X5A - Adverse effect of antineoplastic and immunosuppressive drugs, initial encounter (3) Small cell lung cancer Priority: Secondary (4) Thrombocytopenia Priority: Secondary Status: Acute (5) Oral thrush Priority: Secondary Status: Acute (6) Hemoptysis Priority: Secondary Status: Acute (7) COPD (chronic obstructive pulmonary disease) Priority: Secondary Status: Chronic Qualifiers: COPD type: unspecified COPD Qualified Code(s): J44.9 - Chronic obstructive pulmonary disease, unspecified Hospital course: Mr. Mckeon is a 73 year old male with past medical history of limited stage small cell lung cancer(status post chemotherapy and radiation), COPD admitted on 12/22/18 for syncope, and acute anemia. On admission patient was noted to be anemic and was given 2 units of blood, and 2 units of platelets with impro vement. During hospitalization oncology was involved with recommendation for outpatient follow-up and palliative therapy. During Stay Patient was noted tachycardic and metoprolol was started.Orthostatics done and were positive.Education was given. Patient's echocardiogram showed EF of 60-65%. 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 Patient recently had an MRI brain on 10/2018 showing no evidence of mass or acute intracranial a bnormalities. Patient overall improved and is back to his 3 L oxygen at home. Spoke with oncology and will see the patient on Tuesday. Anemia panel is ordered with follow up results as outpatient with PCP. Educated on the need to follow up with oncology This week. Pulmonary as oupatient follow-up. Discussed with patient and family. Both verbalized understanding and understands if patient is to have any worsening symptoms of shortness of breath, fever, nausea, vomiting, or any evidence of bleeding to come back to the ED. Discharge discussed with: patient, family - Time Spent with Patient Total time spent providing and/or coordinating discharge services: - Discharge Medications Prescriptions: New predniSONE [PredniSONE] 40 mg PO DAILY #2 tablet Continued Fluconazole [Diflucan] 100 mg PO DAILY levoFLOXacin [Levofloxacin] 500 mg PO DAILY Tiotropium [place] [Spiriva Respimat] 2 puff IH DAILY OxyCODONE/APAP 5/325 [Percocet 5/325 MG] 1 each PO Q8HR PRN PRN Reason: Pain Ondansetron HCl [Zofran] 4 mg PO Q6H PRN PRN Reason: Nausea And Vomiting Olodaterol HCl [Striverdi Respimat] 2 puff IH DAILY Montelukast [Singulair] 10 mg PO HS Mometasone Furoate [Asmanex] 220 mcg IH Q12H Loratadine [Allergy Relief] 10 mg PO DAILY Lisinopril [Zestril] 40 mg PO DAILY Ketoconazole 2% CRM [Nizoral Cream] 1 appl TP BID Fluticasone Propionate Nasal [Flonase] 100 mcg NS DAILY Fluorouracil [Carac] 1 gm TP BID Fluocinolone Acetonide Oil [Dermotic] 20 ml TP SUSA Docusate [Colace] 200 mg PO DAILY Dimethicone [Walt Cleanse & Protect] 1 gm TP SUSA Stomatitis Mixture 5 ml PO QID Atorvastatin [Lipitor] 20 mg PO HS Albuterol Neb [AccuNeb] 1.25 mg IH Q6H PRN PRN Reason: Shortness Of Breath/Wheezing Albuterol Sulfate [Proventil Inhaler] 2 puff IH Q4H PRN PRN Reason: Shortness Of Breath PredniSONE [Danyelle] 5 mg PO DAILY #0 Discontinued predniSONE [PredniSONE] See Taper PO TAPER No Action Theophylline Anhydrous [[place]-24] 400 mg PO DAILY Home Medications: Albuterol Neb [AccuNeb] 1.25 mg IH Q6H PRN 12/22/18 [History] Albuterol Sulfate [Proventil Inhaler] 2 puff IH Q4H PRN 12/22/18 [History] Atorvastatin [Lipitor] 20 mg PO HS 12/22/18 [History] Dimethicone [Walt Cleanse & Protect] 1 gm TP SUSA 12/22/18 [History] Docusate [Colace] 200 mg PO DAILY 12/22/18 [History] Fluconazole [Diflucan] 100 mg PO DAILY 12/22/18 [History] Fluocinolone Acetonide Oil [Dermotic] 20 ml TP SUSA 12/22/18 [History] Fluorouracil [Carac] 1 gm TP BID 12/22/18 [History] Fluticasone Propionate Nasal [Flonase] 100 mcg NS DAILY 12/22/18 [History] Ketoconazole 2% CRM [Nizoral Cream] 1 appl TP BID 12/22/18 [History] Lisinopril [Zestril] 40 mg PO DAILY 12/22/18 [History] Loratadine [Allergy Relief] 10 mg PO DAILY 12/22/18 [History] Mometasone Furoate [Asmanex] 220 mcg IH Q12H 12/22/18 [History] Montelukast [Singulair] 10 mg PO HS 12/22/18 [History] Olodaterol HCl [Striverdi Respimat] 2 puff IH DAILY 12/22/18 [History] Ondansetron HCl [Zofran] 4 mg PO Q6H PRN 12/22/18 [History] OxyCODONE/APAP 5/325 [Percocet 5/325 MG] 1 each PO Q8HR PRN 12/22/18 [History] Stomatitis Mixture 5 ml PO QID 12/22/18 [History] Theophylline Anhydrous [[place]-24] 400 mg PO DAILY 12/22/18 [History] Tiotropium [place] [Spiriva Respimat] 2 puff IH DAILY 12/22/18 [History] levoFLOXacin [Levofloxacin] 500 mg PO DAILY 12/22/18 [History] PredniSONE [Danyelle] 5 mg PO DAILY #0 12/23/18 [Rx] predniSONE [PredniSONE] 40 mg PO DAILY #2 tablet 12/23/18 [Rx] Allergies/Adverse Reactions: Allergy/AdvReac Type Severity Reaction Status Date / Time adhesive tape Allergy Rash Verified 12/05/18 09:45 Erythromycin Base Allergy Rash Verified 12/05/18 09:45 [From Erythrocin] latex Allergy Rash Verified 12/05/18 09:45 Date of admission: 12/22/18 12:45 [facility] care physician: [facility] Consults: 12/21/18 13:15 Consult to Oncology [CONS] Stat Consulting Provider: [facility] [place] Reason for Consult: cancer Call Completed: Yes - Constitutional Vitals: Temp Pulse Resp BP Pulse Ox 98.3 F 95 16 147/87 95 12/23/18 06:49 12/23/18 06:49 12/23/18 10:58 12/23/18 11:07 12/23/18 10:58 General appearance: Present: A&O X 3, answers questions appropriately Exam: - General:Pt sitting comfortably, NAD Head Head exam: Present: atraumatic, normocephalic - Eye Eye exam: Present: conjuntiva pale, sclera anicteric. Absent: nystagmus Pupils: Present: PERRL - Neck Neck exam general surgery: Present: supple, trachea midline. Absent: lymphadenopathy - Respiratory Respiratory exam: Present: CTA with minimal expiratory basilar wheezes. Absent: accessory muscle use, rales, rhonchi Additional comments: Inspiratory wheezing. - Cardiovascular Cardiovascular exam: Present: RRR, Absent: murmur - GI/Abdominal GI/Abdominal exam: Present: normal bowel sounds, soft, no peritoneal signs. Absent: distended, tenderness - Extremities Exam Extremities exam: Present: warm, radial pulses palpable and symmetrical. Absent: calf tenderness, cyanotic, pedal edema - Neurological Exam Neurological exam: Present: CN II-XII intact, oriented X3, no focal deficits. Absent: pronater drift, facial droop, speech deficit - Skin Skin exam: Present: dry, intact - Patient Status Disposition: Home, Self-Care Condition: Fair Functional capacity at discharge: independent ambulation Overall status at discharge: patient is progressing back to baseline - Discharge Instructions Instructions: Syncope (DC), Hypotension (DC), Anemia (GEN) [facility] With: [facility] [Primary Care Provider] - ([facility] will need to make a [facility] appointment [facility] for a hospital follow up) Morgan Stein MD [Partnered Physician] - (patient had a appointment on with Hakan Hansen MD [Partnered Physician] - (Please me appointment in 1-2 weeks.) - Diet and Activity Activity: increase activity as tolerated, wear oxygen at all times Diet: advance to your usual diet - VTE Reasons for not Prescribing Prophylaxis: Medical contraindication
== END 2018-12-23 14:44 | disposition home or self-care (01) | DRG 812 ==
LOC: EMEROOARM 11:37 → 2NENU 11:37 → SUATTDRO 12-22 12:45
PROVIDERS: ADMIT Internal Medicine; ATTEND Internal Medicine

== ENCOUNTER 2022-02-12 18:52 | Inpatient (IN) ==
[2022-02-12] MEDS ORDERED: *HR* Promethazine 25 MG/ML VIAL IM PRN (22:40)
[2022-02-12] MEDS ORDERED: *HR* OxyCODONE Immed Rel 5 MG TABLET PO PRN (22:40)
[2022-02-12] MEDS ORDERED: *HR* HYDROcodone/Acet 5/325 mg TABLET PO PRN (22:40)
[2022-02-12] MEDS ORDERED: Ondansetron 4 MG/2 ML VIAL IVP PRN (22:40)
[2022-02-12] MEDS ORDERED: Melatonin 3 MG TABLET PO PRN (22:40)
[2022-02-12] MEDS ORDERED: Naloxone 0.4 MG/ML INJ IVP PRN (22:40)
[2022-02-12] MEDS ORDERED: Acetaminophen 325 MG TABLET PO PRN (22:40)
[2022-02-12] MEDS ORDERED: *HR* Heparin 5,000 UNIT/ML VIAL IVP PRN ×2 (22:43)
[2022-02-13] MEDS: MethylPREDNISolone 40 MG/ML VIAL IVP SCH ×2 (00:50→07:53)
[2022-02-13] MEDS: Ipratropium/Albuterol Neb 3 ML IH SCH ×7 (02:17→23:39)
[2022-02-13 02:36] LABS: VBG HCO3 32 mEq/L (21-27); VBG PCO2 63 mmHg (41-51); VBG PH 7.32 pH Units (7.32-7.42); VBG PO2 62 mmHg (25-50)
[2022-02-13 02:49] LABS: Heparin anti-factor XA UFH 0.61 IU/mL (0.30-0.70)
[2022-02-13 02:50] LABS: INR 1.2; Prothrombin Time 13.4 Seconds (9.4-12.1)
[2022-02-13 02:51] LABS: Basophils % 0.1 %; Hematocrit 35.9 % (37.5-50.1); Hemoglobin 11.2 g/dL (12.9-16.9); Immature Granulocytes % 0.8 % (0-4); Lymphocytes # 0.6 K/mcL (0.6-4.6); Lymphocytes % 4.9 %; Mean Corpuscular HGB Conc 31.2 g/dL (31.6-35.5); Mean Corpuscular Hemoglobin 28.8 pg (28.0-33.3); Mean Corpuscular Volume 92.3 fL (83.0-100.0); Mean Platelet Volume 11.1 fL (9.4-12.4); Monocytes # 0.3 K/mcL (0.0-1.3); Monocytes % 2.5 %; Neutrophils # 10.4 K/mcL (1.6-8.9); Platelet Count 229 K/mcL (140-400); Red Blood Count 3.89 M/mcL (4.19-5.50); Red Cell Distribution Width 14.6 % (11.5-14.5); Segmented Neutrophils % 91.7 %; White Blood Count 11.3 K/mcL (4.3-11.1)
[2022-02-13 02:55] LABS: BUN/Creatinine Ratio 23 (6-26); Blood Urea Nitrogen 17 mg/dL (8-23); Calcium 9.6 mg/dL (8.6-10.3); Carbon Dioxide 33 mEq/L (23-29); Chloride 96 mEq/L (98-107); Glucose 158 mg/dL (70-105); Osmolality,Calculated 287 (280-300); Potassium 3.9 mEq/L (3.5-5.1); Sodium 136 mEq/L (136-145)
[2022-02-13] MEDS: Furosemide 40 MG TABLET PO SCH (07:53)
[2022-02-13] MEDS: Benzonatate 100 MG CAPSULE PO SCH (07:53)
[2022-02-13] MEDS: Heparin 25,000UNIT/250ML 1/2NS 25,000 UNIT/250 ML IV.SOLN IVC SCH ×2 (12:59→17:44)
[2022-02-13] MEDS: levoFLOXacin 750 MG/150 ML 750 MG/150 ML BAG IVPB SCH (14:12)
[2022-02-13] MEDS: Gabapentin 100 MG CAPSULE PO SCH (20:57)
[2022-02-13] MEDS: predniSONE 20 MG TABLET PO SCH (20:58)
[2022-02-13] MEDS: Mometasone Furoate 100 MCG/PUFF Inhaler IH SCH (21:09)
[2022-02-14 02:55] LABS: Basophils % 0.2 %; Hematocrit 34.4 % (37.5-50.1); Hemoglobin 10.7 g/dL (12.9-16.9); Immature Granulocytes % 0.8 % (0-4); Lymphocytes # 0.3 K/mcL (0.6-4.6); Lymphocytes % 2.5 %; Mean Corpuscular HGB Conc 31.1 g/dL (31.6-35.5); Mean Corpuscular Hemoglobin 29.2 pg (28.0-33.3); Mean Corpuscular Volume 93.7 fL (83.0-100.0); Mean Platelet Volume 11.3 fL (9.4-12.4); Monocytes # 0.7 K/mcL (0.0-1.3); Platelet Count 240 K/mcL (140-400); Red Blood Count 3.67 M/mcL (4.19-5.50); Red Cell Distribution Width 14.5 % (11.5-14.5); Segmented Neutrophils % 91.5 %; White Blood Count 13.1 K/mcL (4.3-11.1)
[2022-02-14 03:12] LABS: BUN/Creatinine Ratio 24 (6-26); Blood Urea Nitrogen 18 mg/dL (8-23); Calcium 9.5 mg/dL (8.6-10.3); Carbon Dioxide 30 mEq/L (23-29); Chloride 99 mEq/L (98-107); Glucose 173 mg/dL (70-105); Osmolality,Calculated 292 (280-300); Potassium 3.7 mEq/L (3.5-5.1); Sodium 138 mEq/L (136-145)
[2022-02-14] MEDS: Ipratropium/Albuterol Neb 3 ML IH SCH ×5 (03:50→20:54)
[2022-02-14] MEDS ORDERED: Tiotropium 10 INH DOSE IH ONE (07:56)
[2022-02-14] MEDS: Mometasone Furoate 100 MCG/PUFF Inhaler IH SCH ×2 (08:05→20:55)
[2022-02-14] MEDS: Tiotropium 10 INH DOSE IH SCH (08:06)
[2022-02-14] MEDS ORDERED: NON-FORMULARY MEDICATION 1 EACH EACH (Tiotropium Br/Olodaterol Hcl [Stiolto Respimat Inhal IH SCH (09:00)
[2022-02-14] MEDS: Cyanocobalamin (B-12) 1,000 MCG TABLET PO SCH (09:16)
[2022-02-14] MEDS: Aspirin Enteric Coated 81 MG Tablet PO SCH (09:16)
[2022-02-14] MEDS: predniSONE 20 MG TABLET PO SCH (09:16)
[2022-02-14] MEDS: Benzonatate 100 MG CAPSULE PO SCH (09:16)
[2022-02-14] MEDS: Furosemide 40 MG TABLET PO SCH (09:16)
[2022-02-14] MEDS: Gabapentin 100 MG CAPSULE PO SCH ×3 (09:16→20:19)
[2022-02-14] MEDS: Loratadine 10 MG TABLET PO SCH (09:16)
[2022-02-14] MEDS: levoFLOXacin 750 MG/150 ML 750 MG/150 ML BAG IVPB SCH (09:17)
[2022-02-14] MEDS: Heparin 25,000UNIT/250ML 1/2NS 25,000 UNIT/250 ML IV.SOLN IVC SCH (10:46)
[2022-02-14] MEDS: Fluticasone Propionate Nasal 50 MCG/SPRAY BOTTLE NS SCH (17:07)
[2022-02-15] MEDS: Ipratropium/Albuterol Neb 3 ML IH SCH ×5 (00:21→16:03)
[2022-02-15 03:02] LABS: Basophils % 0.4 %; Hematocrit 34.3 % (37.5-50.1); Hemoglobin 10.7 g/dL (12.9-16.9); Immature Granulocytes % 2.6 % (0-4); Lymphocytes # 0.6 K/mcL (0.6-4.6); Lymphocytes % 6.5 %; Mean Corpuscular HGB Conc 31.2 g/dL (31.6-35.5); Mean Corpuscular Hemoglobin 29.2 pg (28.0-33.3); Mean Corpuscular Volume 93.5 fL (83.0-100.0); Monocytes # 0.7 K/mcL (0.0-1.3); Monocytes % 6.9 %; Neutrophils # 7.9 K/mcL (1.6-8.9); Nucleated Red Blood Cells 0.2 /100 WBC (0); Platelet Count 261 K/mcL (140-400); Red Blood Count 3.67 M/mcL (4.19-5.50); Red Cell Distribution Width 14.6 % (11.5-14.5); Segmented Neutrophils % 83.6 %; White Blood Count 9.4 K/mcL (4.3-11.1)
[2022-02-15 03:23] LABS: BUN/Creatinine Ratio 29 (6-26); Blood Urea Nitrogen 20 mg/dL (8-23); Calcium 9.3 mg/dL (8.6-10.3); Carbon Dioxide 32 mEq/L (23-29); Chloride 100 mEq/L (98-107); Glucose 161 mg/dL (70-105); Osmolality,Calculated 292 (280-300); Potassium 3.5 mEq/L (3.5-5.1); Sodium 138 mEq/L (136-145)
[2022-02-15] MEDS: Heparin 25,000UNIT/250ML 1/2NS 25,000 UNIT/250 ML IV.SOLN IVC SCH (04:05)
[2022-02-15] MEDS: Mometasone Furoate 100 MCG/PUFF Inhaler IH SCH (08:08)
[2022-02-15] MEDS: Tiotropium 10 INH DOSE IH SCH (08:08)
[2022-02-15] MEDS: Gabapentin 100 MG CAPSULE PO SCH ×2 (08:53→14:13)
[2022-02-15] MEDS: levoFLOXacin 750 MG/150 ML 750 MG/150 ML BAG IVPB SCH (08:53)
[2022-02-15] MEDS: Benzonatate 100 MG CAPSULE PO SCH (08:54)
[2022-02-15] MEDS: Furosemide 40 MG TABLET PO SCH (08:54)
[2022-02-15] MEDS: Aspirin Enteric Coated 81 MG Tablet PO SCH (08:54)
[2022-02-15] MEDS: Loratadine 10 MG TABLET PO SCH (08:54)
[2022-02-15] MEDS: Cyanocobalamin (B-12) 1,000 MCG TABLET PO SCH (08:54)
[2022-02-15] MEDS: Fluticasone Propionate Nasal 50 MCG/SPRAY BOTTLE NS SCH (08:55)
[2022-02-15] MEDS: predniSONE 20 MG TABLET PO SCH (08:55)
[2022-02-15] MEDS ORDERED: Vitamin E 200 UNIT (90MG) CAPSULE PO SCH (09:00)
[2022-02-15 16:46] VITALS: BP 151/76; PULSE 77; TEMP 97; O2SAT 94
[2022-02-15] MEDS ORDERED: Apixaban 5 MG TABLET PO ONE (18:00)
== END 2022-02-15 18:43 | disposition home or self-care (01) | DRG 175 ==
LOC: 2NENU → SUATTDRO 21:03
PROVIDERS: ADMIT Internal Medicine; ATTEND Internal Medicine